=== PATIENT | male | born 1975 | race Two or more races ===

== ENCOUNTER 2019-06-16 22:42 | Emergency (ER) | payer SELFPAY ==
[~2019-06-16] VITALS: Ht 172.7 cm; Wt 59.4 kg
[2019-06-17 01:08] VITALS: BP 122/70
--- NOTE | 2019-06-17 01:10 | NUR ---
PT BIBS REPORT HE CUT HIS HAND WITH KIFE WHILE TRIMMING SOME PLANTS. PT AXOX4. PATIENT DENIES PAIN. PATIENT HAS BANDAGE WITH SPLINT TO LEFT HAND. VSS. WILL AWAIT FOR MD TO SEE.
[2019-06-17] MEDS ORDERED: LIDOCAINE 1%-EPI 1:100,000 20 ML VIAL ONE (02:26)
[2019-06-17] MEDS ORDERED: LIDOCAINE HCL/PF 1% 30 ML VIAL TP ONE (02:30)
[2019-06-17] MEDS ORDERED: TDAP [DIPH/PERTUSSIS/TET] 0.5 ML VIAL IM ONE ×2 (02:58→03:00)
[2019-06-17] MEDS ORDERED: CEPHALEXIN MONOHYDRATE 500 MG CAPSULE PO ONE ×2 (03:27→03:30)
== END 2019-06-17 03:54 | disposition home or self-care (01) ==
LOC: ER 22:45
DX: S61.211A Laceration without foreign body of left index finger without damage to nail, initial encounter (principal); Z98.890 Other specified postprocedural states; W26.0XXA Contact with knife, initial encounter; Y93.89 Activity, other specified; Y92.89 Other specified places as the place of occurrence of the external cause; Y99.8 Other external cause status
CPT/HCPCS: 12002; 90471; 90715; 99283; J3490 ×2

== ENCOUNTER 2019-09-30 11:58 | Emergency (ER) | payer SELFPAY ==
[~2019-09-30] VITALS: Ht 172.7 cm; Wt 59.0 kg
[2019-09-30 12:15] VITALS: BP 136/55
[2019-09-30] MEDS ORDERED: AZITHROMYCIN 250 MG TABLET PO ONE (12:30)
[2019-09-30] MEDS ORDERED: CEFTRIAXONE 500 MG VIAL IM ONE (12:30)
[2019-09-30] MEDS ORDERED: AZITHROMYCIN 250 MG TABLET ONE (12:35)
[2019-09-30] MEDS ORDERED: CEFTRIAXONE 500 MG VIAL ONE (12:36)
[2019-09-30] MEDS ORDERED: LIDOCAINE /MPF 1% VIAL 5 ML VIAL ONE (12:36)
== END 2019-09-30 12:55 | disposition home or self-care (01) ==
LOC: ER 11:59
DX: A64 Unspecified sexually transmitted disease (principal); F17.200 Nicotine dependence, unspecified, uncomplicated; F12.90 Cannabis use, unspecified, uncomplicated
CPT/HCPCS: 87491; 87591; 96372; 99283; J0696; J3490

== ENCOUNTER 2020-01-14 22:39 | Emergency (ER) | payer SELFPAY ==
[~2020-01-14] VITALS: Ht 152.4 cm; Wt 49.9 kg
[2020-01-14 22:44] VITALS: BP 127/87
[2020-01-14] MEDS ORDERED: AZITHROMYCIN 250 MG TABLET ONE (22:52)
[2020-01-14] MEDS ORDERED: CEFTRIAXONE 500 MG VIAL ONE (22:52)
[2020-01-14] MEDS ORDERED: IBUPROFEN 600 MG TABLET PO ONE ×2 (22:52→23:00)
[2020-01-14] MEDS ORDERED: LIDOCAINE /MPF 1% VIAL 5 ML VIAL ONE (22:53)
[2020-01-14 22:55] LABS: APPEARANCE,URINE Slightly Cloudy (CLEAR); BILIRUBIN,URINE SMALL (NEGATIVE); BLOOD, URINE Small Ery/uL (NEGATIVE); COLOR,URINE Dark (YELLOW); KETONES,URINE Negative (NEGATIVE); LEUKOCYTE ESTERASE ,URINE Trace (NEGATIVE); NITRITE, URINE Negative (NEGATIVE); PROTEIN,URINE 100 mg/dl (NEGATIVE); UGLUCOSE Negative (NEGATIVE)
[2020-01-14] MEDS ORDERED: AZITHROMYCIN 250 MG TABLET PO ONE (23:00)
[2020-01-14] MEDS ORDERED: CEFTRIAXONE 500 MG VIAL IM ONE (23:00)
--- NOTE | 2020-01-14 23:01 | NUR ---
PATIENT CAME TO ER BED 9 C/O DYSURIA SINCE YESTERDAY. PATIENT STATES THERE IS PAIN UPON URINATING. AAOX4. NO SOB. BREATHING EVENLY AND UNLABORED ON ROOM AIR.
[2020-01-14 23:06] LABS: BACTERIA,URINE Few /HPF (None Seen); SQUAMOUS EPITHELIAL CELL,UR Few /HPF (None Seen); WBC,URINE 51-80 /HPF (0-3)
--- NOTE | 2020-01-14 23:23 | NUR ---
Patient discharged to home in stable condition. Written and verbal after care instructions given. Patient verbalizes understanding of instruction and RX. VSS. Pt ambulated with steady gait.
== END 2020-01-14 23:24 | disposition home or self-care (01) ==
LOC: ER 22:39
DX: A64 Unspecified sexually transmitted disease (principal); A54.01 Gonococcal cystitis and urethritis, unspecified
CPT/HCPCS: 81001; 96372; 99283; J0696; J3490; 81000-TC; 87086-TC

== ENCOUNTER 2020-05-23 05:40 | Emergency (ER) | payer SELFPAY ==
[~2020-05-23] VITALS: Ht 172.7 cm; Wt 59.0 kg
[2020-05-23 06:11] VITALS: BP 134/97
== END 2020-05-23 06:39 | disposition home or self-care (01) ==
LOC: ER 05:45
DX: L97.519 Non-pressure chronic ulcer of other part of right foot with unspecified severity (principal)
CPT/HCPCS: 99283; A6403

== ENCOUNTER 2020-08-15 10:52 | Emergency (ER) | payer SELFPAY ==
[~2020-08-15] VITALS: Ht 172.7 cm; Wt 59.0 kg
[2020-08-15 11:10] VITALS: BP 146/86
[2020-08-15 11:35] LABS: BILIRUBIN,URINE Negative (NEGATIVE); BLOOD, URINE Negative Ery/uL (NEGATIVE); COLOR,URINE YELLOW (YELLOW); LEUKOCYTE ESTERASE ,URINE Small (NEGATIVE); NITRITE, URINE Negative (NEGATIVE); PH,URINE 6.5 (5.0-8.0); PROTEIN,URINE 30 mg/dl (NEGATIVE); UGLUCOSE Negative (NEGATIVE); UROBILINOGEN,URINE 0.2 EU/dL (0.2)
[2020-08-15] MEDS ORDERED: CEFTRIAXONE 500 MG VIAL IM ONE (12:00)
[2020-08-15] MEDS ORDERED: AZITHROMYCIN 250 MG TABLET PO ONE (12:00)
[2020-08-15 12:10] LABS: RBC,URINE 0-2 /HPF (0-2)
[2020-08-15 12:11] LABS: BACTERIA,URINE Few /HPF (None Seen); SQUAMOUS EPITHELIAL CELL,UR Rare /HPF (None Seen)
[2020-08-15] MEDS ORDERED: CEFTRIAXONE 500 MG VIAL ONE (12:18)
[2020-08-15] MEDS ORDERED: LIDOCAINE /MPF 1% VIAL 5 ML VIAL ONE (12:18)
[2020-08-15] MEDS ORDERED: AZITHROMYCIN 250 MG TABLET ONE (12:54)
--- NOTE | 2020-08-15 12:58 | NUR ---
Patient discharged to home in stable condition. Written and verbal after care instructions given. Patient verbalizes understanding of instruction.
== END 2020-08-15 12:59 | disposition home or self-care (01) ==
LOC: ER 10:57
DX: N34.2 Other urethritis (principal); A64 Unspecified sexually transmitted disease
CPT/HCPCS: 81001; 87086; 87491; 87591; 96372; 99283; J0696; J3490

== ENCOUNTER 2023-05-27 23:46 | Emergency (ER) | payer MEDICAID ==
[~2023-05-27] VITALS: Ht 172.7 cm; Wt 54.4 kg
[2023-05-28 00:13] VITALS: BP 129/67; TEMP 98.1; O2SAT 98
[2023-05-28] MEDS ORDERED: CEPH500T PO (00:18)
[2023-05-28] MEDS ORDERED: SULF1TAB48 PO (00:18)
== END 2023-05-28 00:22 | disposition home or self-care (01) ==
LOC: ER 23:55
DX: Z48.02 Encounter for removal of sutures (principal); T63.301A Toxic effect of unspecified spider venom, accidental (unintentional), initial encounter

== ENCOUNTER 2025-07-05 16:24 | Emergency (ER) | payer MEDICAID ==
[~2025-07-05] VITALS: Ht 165.1 cm; Wt 54.4 kg
[~2025-07-05 16:24] MED LIST: CEPH500T PO; SULF1TAB48 PO
[2025-07-05 16:27] VITALS: BP 145/102; TEMP 98.3
[2025-07-05] MEDS ORDERED: TETRAcaine 5 ML BOTTLE ONE (16:43)
[2025-07-05] MEDS ORDERED: FLUORESCEIN SODIUM OPHTH 1 EA STRIP ONE (16:43)
[2025-07-05] MEDS ORDERED: ERYT3.5O9 LEFTEYE (17:00)
[2025-07-05] MEDS: TETRAcaine 5 ML BOTTLE EACHEYE ONE (17:08)
[2025-07-05] MEDS: FLUORESCEIN SODIUM OPHTH 1 EA STRIP OP ONE (17:08)
[2025-07-05 17:19] VITALS: O2SAT 98
== END 2025-07-05 17:20 | disposition home or self-care (01) ==
LOC: ER 16:29
DX: S05.02XA Injury of conjunctiva and corneal abrasion without foreign body, left eye, initial encounter (principal); W44.9XXA Unspecified foreign body entering into or through a natural orifice, initial encounter; Y93.89 Activity, other specified; Y92.89 Other specified places as the place of occurrence of the external cause; Y99.8 Other external cause status